=== PATIENT | female | born 1940 | race Two or more races ===

== ENCOUNTER 2022-12-08 14:57 | Emergency (ER) | payer MEDICARE, BC ==
--- NOTE | 2022-12-08 15:06 | ED Physician Documentation ---
PD HPI UPPER EXT INJURY - Stated complaint Stated Complaint: CUT LT THUMB - History obtained from History obtained from: Patient - History of Present Illness Location: Left, Finger (thumb palmar side fat pad, wiht knife while cutting bagel. She cleaned and bandaged but it still is bleeding slowly 2 hours later.) Type of injury: Laceration (She was cutting a bagel and has a small flap laceration on the tip of the thumb that keeps bleeding.) Timing - onset: How many hours ago (2) PD PAST MEDICAL HISTORY - Present Medications Home Medications: Ambulatory Orders Medication Instructions Recorded Confirmed Lisinopril [Zestril] 2.5 mg PO DAILY 12/08/22 12/08/22 - Allergies Allergies/Adverse Reactions: Allergies Allergy/AdvReac Type Severity Reaction Status Date / Time Sulfa (Sulfonamide Allergy Hives Verified 12/08/22 15:12 Antibiotics) PD ED PE NORMAL - Vitals Vital signs reviewed: Yes - General General: Alert and oriented X 3, No acute distress, Well developed/nourished - Derm Derm: Normal color, Warm and dry - Extremities Extremities: Other (The left thumb on the palmar aspect shows a 1 x 0.3 cm partial-thickness flap that is still attached at one end. There is oozing blood from the area. No foreign bodies.) - Neuro Neuro: No motor deficit, No sensory deficit Results - Vitals Vitals: Vital Signs - 24 hr 12/08/22 15:10 Temperature 36.4 C L Heart Rate 70 Respiratory 16 Rate Blood Pressure 159/79 H O2 Saturation 98 Oxygen O2 Source Room air PD Medical Decision Making - ED course Complexity details: considered differential, d/w patient ED course: The patient is here largely because the wound keeps bleeding despite bandaging. I did inject the area with lidocaine to have decreased bleeding just from the pressure of it. Then applied Steri-Strips and Dermabond to the area while it was not bleeding and there does not seem to be any further bleeding at this time. The flap of skin is still present over the wound and I am leaving it as protection notes not clear the viability of that layer. She is instructed she can just trim it off if it seems to not heal in. Departure - Departure Disposition: 01 Home, Self Care Clinical Impression: Flap laceration of skin Condition: Stable Record reviewed to determine appropriate education?: Yes Instructions: ED Laceration Ext Skin Glue Comments: These surface cuts that just peeled the skin surprisingly will keep bleeding well from just the capillaries and small vessels. With it glued and taped at this point it should stem the bleeding and be stopped at this point. Keep the area clean and dry and the bandaging intact for a day or 2 for initial healing. At that point it should be able to be cared with just regular cleaning and bandages. The small flap of skin may actually loosen up and not heal in. If it does not heal down, then in the near future as it is loosened up it can be just cut off with scissors as there would not likely be any nerve endings in that small flap. Recheck if signs of infection. Tylenol if needed for pains.
[2022-12-08 15:20] VITALS: BP 159/79
== END 2022-12-08 15:36 | disposition home or self-care (01) ==
LOC: ED 14:57
DX: S61.012A Laceration without foreign body of left thumb without damage to nail, initial encounter (principal); W26.0XXA Contact with knife, initial encounter; Y93.G1 Activity, food preparation and clean up
CPT/HCPCS: 99282; 99283